=== PATIENT | female | born 1985 | race Caucasian/White ===

== ENCOUNTER 2016-07-01 23:51 | Emergency (ER) | payer MEDICAID ==
[2016-07-01] MEDS ORDERED: NS 1,000 ML IV ONE (23:59)
--- NOTE | 2016-07-02 00:07 | CPEKG ---
Heart Rate: 86 RR Interval: 698 P-R Interval: 168 QRSD Interval: 72 QT Interval: 356 QTC Interval: 426 P Willards: 77 QRS Willards: 57 T Wave Willards: 52 EKG Severity - NORMAL ECG - EKG Impression: SINUS RHYTHM Electronically Signed By: Peggy Nunes 02-Jul-2016 23:10:09
[2016-07-02 00:22] LABS: % IMMATURE GRANULYOCYTES 0.3 % (0.0-1.1); ABSOLUTE IMMATURE GRANULOCYTES 0.02 10^3/uL (0.00-0.10); ADD DIFF? NO; ADD MORPH? NO; ADD SCAN? NO; ATYPICAL LYMPHOCYTE FLAG 20 (0-99); FRAGMENT RBC FLAG 0 (0-99); HEMATOCRIT 40.7 % (38.0-47.0); HEMOGLOBIN 13.4 g/dL (12.6-16.3); LEFT SHIFT FLG 0 (0-99); LIPEMIA HEMOLYSIS FLAG 80 (0-99); MEAN CELL HEMOGLOBIN 29.4 pg (27.9-34.1); MEAN CELL HEMOGLOBIN CONCENTR. 32.9 g/dL (32.4-36.7); MEAN CELL VOLUME 89.3 fL (81.5-99.8); MEAN PLATELET VOLUME 10.1 fL (8.7-11.7); PLATELET CLUMPS FLAG 0 (0-99); PLATELET COUNT 332 10^3/uL (150-400); RED BLOOD CELL COUNT 4.56 10^6/uL (4.18-5.33); RED CELL DISTRIBUTION WIDTH 11.8 % (11.5-15.2)
[2016-07-02 00:29] LABS: ALANINE AMINOTRANSFERASE 41 IU/L (9-52); ALBUMIN 4.2 g/dL (3.5-5.0); ALKALINE PHOSPHATASE 52 IU/L (38-126); ANION GAP 12 mEq/L (8-16); ASPARTATE AMINOTRANSFERASE 41 IU/L (14-46); BILIRUBIN,TOTAL 0.7 mg/dL (0.1-1.4); BILIRUBIN-CONJUGATED 0.2 mg/dL (0.0-0.5); BILIRUBIN-UNCONJUGATED 0.5 mg/dL (0.0-1.1); CALCIUM 9.5 mg/dL (8.5-10.4); CARBON DIOXIDE 26 mEq/l (22-31); CHLORIDE 104 mEq/L (97-110); CREATININE 0.6 mg/dL (0.6-1.0); GLOMERULAR FILTRATION RATE > 60; GLUCOSE 92 mg/dL (70-100); POTASSIUM 4.4 mEq/L (3.5-5.2); SODIUM 142 mEq/L (134-144); TOTAL PROTEIN 7.1 g/dL (6.3-8.2)
--- NOTE | 2016-07-02 01:59 | EDPHY ---
H & P Stated Complaint: SYNCOPE AFTER WALKING TO RESTROOM. SICK LAST WEEK HPI/ROS: Chief complaint: Syncope History of present illness: This is a 30-year-old female brought to the emergency department by EMS after having a syncopal episode. Patient got up to use the bathroom when she had the syncopal episode. She does remember becoming lightheaded. EMS was called. They do report patient was hypotensive with positive orthostatics vital signs. She was transported here for further evaluation and care. On my evaluation patient describes feeling unwell, without specific complaints. No report of fever, no report of cold symptoms although she was sick last week, no chest pain, no shortness of breath or cough , no abdominal pain, no nausea, vomiting or diarrhea, no urinary symptoms. No report of trauma from the syncopal episode. Review of systems: A 10 point review of systems was obtained and other than described above was negative - Personal History Current Tetanus/Diphtheria Vaccine: Unsure Current Tetanus Diphtheria and Acellular Pertussis (TDAP): Unsure - Medical/Surgical History Hx Asthma: No Hx Chronic Respiratory Disease: No Hx Diabetes: No Hx Cardiac Disease: No Hx Renal Disease: No Hx Cirrhosis: No Hx Alcoholism: No Hx HIV/AIDS: No Hx Splenectomy or Spleen Trauma: No Other PMH: celiac, pancreatic insufficiency, hiatal hernia. sm intestine bacteria overgrowth - Social History Smoking Status: Never smoked - Physical Exam Exam: General Appearance: Alert, nontoxic. Eyes: Pupils equal and round no pallor or injection. ENT, Mouth: Mucous membranes moist. Respiratory: There are no retractions, lungs are clear to auscultation. Cardiovascular: Regular rate and rhythm. Gastrointestinal: Abdomen is soft and nontender, no masses, bowel sounds normal. Neurological: Alert and oriented x4. Cranial nerves 2-12 grossly intact. Strength and sensation intact and symmetrical. Skin: Warm and dry, no rashes. Musculoskeletal: Head is normocephalic, atraumatic. The spine is nontender to palpation along its entire length. Extremities are symmetrical, full range of motion. Patient is ambulating well. Psychiatric: Patient is oriented X 3, there is no agitation. Constitutional: Initial Vital Signs Temperature (C) 36.8 C 07/02/16 00:00 Heart Rate 87 07/02/16 00:00 Respiratory Rate 18 07/02/16 00:00 Blood Pressure 133/92 H 03/18/17 00:00 O2 Sat (%) 100 07/02/16 00:00 O2 Delivery Mode Room Air Allergies/Adverse Reactions: Sulfa (Sulfonamide Antibiotics) Allergy (Unknown, Verified 07/02/16 00:14) gluten Allergy (Verified 07/02/16 00:14) Lactase [From Dairy Aid] Allergy (Verified 07/02/16 00:14) EGGS Allergy (Uncoded 07/02/16 00:14) Home Medications: Medication Instructions Recorded NK [No Known Home Meds] 07/02/16 Medical Decision Making ED Course/Re-evaluation: Patient discussed with my secondary supervising physician Dr. Amparo Cassidy. Patient presents to the emergency department with EMS after having a syncopal episode. EMS reports patient was orthostatic on scene. On my evaluation patient is nontoxic. Vital signs are stable. Physical exam is benign including a nonfocal neurologic exam. Blood studies and EKG unremarkable. Patient has been IV hydrated. She is feeling better. She is asymptomatic at discharge. I do believe she is appropriate for outpatient management. She is discharged home. Home care is discussed. She is asked to follow up with a primary care doctor for recheck. Return precautions are given. Patient voiced understanding and agreement with plan. Differential Diagnosis: Syncope secondary to dehydration, vasovagal, anemia, electrolyte disturbances, cardiac disturbances, unlikely pulmonary embolism, patient is perc negative, not tachycardic or hypoxic with no cough chest pain or shortness of breath - Data Points Laboratory Results: Laboratory Results 07/01/16 23:52 07/01/16 23:52 Medications Given: Discontinued Medications Sodium Chloride (Ns) 1,000 mls @ 0 mls/hr IV ONCE ONE PRN Reason: Wide Open Stop: 07/02/16 00:00 Last Admin: 07/02/16 00:24 Dose: 1,000 mls Departure - Departure Disposition: Home, Routine, Self-Care Clinical Impression: Syncope Qualifiers: Syncope type: unspecified Qualified Code(s): R55 - Syncope and collapse Condition: Good Instructions: Syncope (ED) Additional Instructions: Follow-up with your primary care doctor on Monday for recheck Drink plenty of fluids to stay hydrated If symptoms worsen or new symptoms develop return to the emergency room for recheck Referrals: BERTO GONZALES [Other] - As per Instructions
[2016-07-02 02:15] VITALS: BP 114/79; PULSE 86; RESP 18; TEMP 98.4; O2SAT 98
== END 2016-07-02 02:14 | disposition home or self-care (01) ==
LOC: EDUNIT#
DX: R55 Syncope and collapse (principal)